=== PATIENT | female | born 1950 | race Hispanic/Latino ===

== ENCOUNTER 2021-02-17 00:52 | Observation (INO) | payer MEDICARE, OTHER ==
[2021-02-17] VITALS (10 sets, daily range): BP systolic 119–199; BP diastolic 63–83
[~2021-02-17] VITALS: Ht 149.9 cm; Wt 74.6 kg
[~2021-02-17 00:52] MED LIST: ERGO500014 PO; GLIM2TAB30 PO; LISI1TAB51 PO; PRED2.5T PO
[2021-02-17] MEDS ORDERED: LACTATED RINGERS 1000ML 1,000 ML IV ONE (02:30)
[2021-02-17 02:40] LABS: BASOPHILS % (AUTO) 0.8 % (0.0-5.0); EOSINOPHILS % (AUTO) 3.3 % (0.0-8.0); HEMATOCRIT 32.6 % (36-48); LYMPHOCYTES % (AUTO) 34.7 % (21.0-51.0); MEAN CORPUSCULAR HGB CONC 33.4 g/dL (32.0-36.0); MEAN CORPUSCULAR VOLUME 80.7 fL (79-99); MONOCYTES % (AUTO) 6.2 % (3.0-13.0); NEUTROPHILS % (AUTO) 54.8 % (40.0-77.0); PLATELET COUNT (AUTO) 351 K/uL (130-400); RED BLOOD CELL COUNT(AUTO) 4.04 MIL/uL (4.00-5.50); RED CELL DISTRIBUTION WIDTH 14.2 % (11.0-15.5); WHITE BLOOD COUNT (AUTO) 4.9 K/uL (4.8-10.8)
[2021-02-17 02:46] LABS: CARBON DIOXIDE 28 mmol/L (21-32); CHLORIDE 105 mmol/L (101-111); CREATININE 0.8 mg/dL (0.5-1.5); GLOMERULAR FILTR. RATE CALC 76 mL/min (>60); GLUCOSE,RANDOM 127 mg/dL (70-105); POTASSIUM 3.6 mmol/L (3.5-5.1); SODIUM SERUM 141 mmol/L (136-145); UREA NITROGEN, BLOOD 17 mg/dL (7-18)
[2021-02-17 03:00] LABS: ALBUMIN 2.6 g/dL (3.5-5.0); BILIRUBIN,TOTAL 0.3 mg/dL (0.2-1.0); CREATINE KINASE, TOTAL 92 U/L (21-232); LDL DIRECT 146 mg/dL (0-99); MYOGLOBIN 44 ng/mL (10-92); PROTHROMBIN TIME 10.9 SEC (9.6-11.6); TOTAL PROTEIN, SERUM 7.6 g/dL (6.0-8.3); TROPONIN I < 0.04 ng/mL (0.00-0.06)
[2021-02-17 03:08] LABS: ASPARTATE AMINOTRANSFERASE 32 U/L (10-37)
[2021-02-17 03:30] LABS: ALANINE AMINOTRANSFERASE 19 U/L (12-78)
[2021-02-17 04:37] LABS: APPEARANCE,URINE Clear (CLEAR); BILIRUBIN,URINE Negative (NEGATIVE); COLOR,URINE Yellow (YELLOW); GLUCOSE, URINE (UA) TRACE mg/dL (NEGATIVE); KETONES,URINE Negative (NEGATIVE); LEUKOCYTE ESTERASE ,URINE Negative (NEGATIVE); NITRATE,URINE Negative (NEGATIVE); OCCULT BLOOD,URINE Small (NEGATIVE); PROTEIN,URINE >=1000 mg/dL (NEGATIVE); UROBILINOGEN,URINE 0.2 mg/dL (0.2-1.0)
[2021-02-17 05:14] LABS: BACTERIA,URINE Rare /HPF (None Seen); SQUAMOUS EPITHELIAL CELL,UR 0-2 /HPF (0-2)
[2021-02-17] MEDS ORDERED: ATOR20TA65 PO (05:47)
[2021-02-17] MEDS ORDERED: FERS325 PO (05:49)
[2021-02-17] MEDS ORDERED: LEVO-170 PO (05:56)
[2021-02-17] MEDS ORDERED: CHOL2400 MC (05:56)
[2021-02-17] MEDS ORDERED: AMLO-258 PO (05:56)
[2021-02-17] MEDS ORDERED: HYDR-4153 PO (05:56)
[2021-02-17 07:25] LABS: HEMATOCRIT 31.6 % (36-48); MEAN CORPUSCULAR VOLUME 81.4 fL (79-99); PLATELET COUNT (AUTO) 282 K/uL (130-400); RED BLOOD CELL COUNT(AUTO) 3.88 MIL/uL (4.00-5.50); RED CELL DISTRIBUTION WIDTH 14.1 % (11.0-15.5); WHITE BLOOD COUNT (AUTO) 5.2 K/uL (4.8-10.8)
[2021-02-17 07:37] LABS: CREATININE 0.7 mg/dL (0.5-1.5); POTASSIUM 3.6 mmol/L (3.5-5.1)
[2021-02-17 07:42] LABS: MAGNESIUM 1.5 mg/dL (1.80-2.40)
[2021-02-17 07:43] LABS: BASOPHILS % (MANUAL) 1 % (0-2); EOSINOPHILS % (MANUAL) 2 % (1-6); LYMPHOCYTES % (MANUAL) 16 % (22-44); MAN.DIFF COMMENT-IMPRESSION MANUAL DIFFERENTIAL; MONOCYTES % (MANUAL) 6 % (2-9); PLATELET MORPHOLOGY COMMENT ADEQUATE; SEGMENTED NEUTROPHILS % 75 % (40-70)
[2021-02-17 07:47] LABS: HEMOGLOBIN A1C 7.4 % (4.0-6.0)
[2021-02-17] MEDS ORDERED: ATORVASTATIN 40 MG TABLET PO SCH (08:00)
[2021-02-17] MEDS: ASPIRIN 81MG CHEW TAB PO SCH ×2 (09:00→09:33)
[2021-02-17] MEDS ORDERED: DEXTROSE 50%-WATER 50 ML DISP.SYRIN IV PRN (09:00)
[2021-02-17] MEDS: ENOXAPARIN SODIUM 30 MG/0.3 ML SQ SCH ×2 (09:00→09:34)
[2021-02-17] MEDS ORDERED: GLUCAGON 1MG KIT 1 MG ML IM PRN (09:00)
[2021-02-17] MEDS ORDERED: GADOTERATE MEGLUMINE 10 MMOL/20 ML VIAL IV ONE (10:22)
[2021-02-17] MEDS ORDERED: INSULIN HUMULIN R 100 UNIT/ML 3ML ONE (12:23)
[2021-02-17] MEDS: HYDRALAZINE 25MG TABLET PO SCH ×2 (14:00→20:28)
[2021-02-17] MEDS: INSULIN HUMULIN R 100 UNIT/ML 3ML SQ SCH ×2 (16:30→21:00)
[2021-02-17] MEDS: ACETAMINOPHEN 325 MG TAB PO PRN (21:01)
[2021-02-17] MEDS ORDERED: TOFA11TA PO (22:01)
[2021-02-17] MEDS ORDERED: METF-445 PO (22:03)
[2021-02-17] MEDS ORDERED: ONDANSETRON 4MG INJ IVP PRN (22:15)
[2021-02-18 03:43] VITALS: BP 189/62
[2021-02-18 05:47] LABS: HEMATOCRIT 31.4 % (36-48); MEAN CORPUSCULAR HEMOGLOBIN 26.2 pg (27.0-33.0); MEAN CORPUSCULAR HGB CONC 32.2 g/dL (32.0-36.0); MEAN CORPUSCULAR VOLUME 81.3 fL (79-99); RED BLOOD CELL COUNT(AUTO) 3.86 MIL/uL (4.00-5.50); RED CELL DISTRIBUTION WIDTH 14.1 % (11.0-15.5); WHITE BLOOD COUNT (AUTO) 4.6 K/uL (4.8-10.8)
[2021-02-18 05:54] LABS: HEMOGLOBIN A1C 7.1 % (4.0-6.0)
[2021-02-18 06:03] LABS: CREATININE 0.7 mg/dL (0.5-1.5); MAGNESIUM 1.7 mg/dL (1.80-2.40); POTASSIUM 3.7 mmol/L (3.5-5.1)
[2021-02-18] MEDS: INSULIN HUMULIN R 100 UNIT/ML 3ML SQ SCH ×4 (06:10→20:38)
[2021-02-18] MEDS: HYDRALAZINE 25MG TABLET PO SCH ×3 (08:30→20:25)
[2021-02-18] MEDS: ASPIRIN 325 MG TABLET PO SCH (08:30)
[2021-02-18] MEDS: ENOXAPARIN SODIUM 30 MG/0.3 ML SQ SCH (08:32)
[2021-02-18 09:56] VITALS: BP 173/78
[2021-02-18 12:33] VITALS: BP 174/75
[2021-02-18] MEDS ORDERED: IOHEXOL-350 50ML VIAL IV ONE (12:59)
[2021-02-18] MEDS: METFORMIN HCL 850 MG TABLET PO SCH (16:30)
[2021-02-18 16:33] VITALS: BP 173/83
[2021-02-18] MEDS: ACETAMINOPHEN 325 MG TAB PO PRN (17:01)
[2021-02-18 19:35] VITALS: BP 169/74
[2021-02-18] MEDS: FERROUS SULFATE 325 MG TABLET.DR PO SCH (20:25)
[2021-02-18] MEDS ORDERED: ATORVASTATIN 20 MG TABLET PO SCH (21:00)
[2021-02-18] MEDS ORDERED: ATORVASTATIN 40 MG TABLET PO SCH (21:00)
[2021-02-19 00:02] VITALS: BP 175/69
[2021-02-19] MEDS ORDERED: CLONIDINE HCL 0.1 MG TABLET PO ONE (00:15)
[2021-02-19 03:50] VITALS: BP 156/62
[2021-02-19] MEDS: METFORMIN HCL 850 MG TABLET PO SCH ×2 (05:44→16:55)
[2021-02-19] MEDS: INSULIN HUMULIN R 100 UNIT/ML 3ML SQ SCH ×3 (06:25→16:30)
[2021-02-19] MEDS ORDERED: LEVOTHYROXINE 50 MCG TABLET PO SCH (07:30)
[2021-02-19] MEDS: ASPIRIN 325 MG TABLET PO SCH (08:26)
[2021-02-19 08:27] VITALS: BP 163/69
[2021-02-19] MEDS: FERROUS SULFATE 325 MG TABLET.DR PO SCH (08:27)
[2021-02-19] MEDS: ENOXAPARIN SODIUM 30 MG/0.3 ML SQ SCH (08:31)
[2021-02-19] MEDS: HYDRALAZINE 25MG TABLET PO SCH ×2 (08:31→13:14)
[2021-02-19] MEDS ORDERED: AMLODIPINE 5 MG TAB PO SCH (09:00)
[2021-02-19] MEDS ORDERED: CHOLECALCIFEROL 5000 UNIT PO SCH (09:00)
[2021-02-19] MEDS ORDERED: PREDNISONE 5 MG TABLET PO SCH (09:00)
[2021-02-19] MEDS ORDERED: TOFACITINIB CITRATE 11 MG PO SCH (09:00)
[2021-02-19 14:00] VITALS: BP 165/77
[2021-02-19 17:05] VITALS: BP 138/72
[2021-02-20] MEDS ORDERED: LEVOTHYROXINE 50 MCG TABLET PO SCH (06:30)
== END 2021-02-19 18:45 | disposition home health service (06) ==
LOC: EDH 00:52 → EDHIP 04:57 → INTOOBSV 04:57 → 3CH 21:12
PROVIDERS: ADMIT Internal Medicine Infectious Disease; ATTEND Internal Medicine Infectious Disease
DX: G45.9 Transient cerebral ischemic attack, unspecified (principal); I69.354 Hemiplegia and hemiparesis following cerebral infarction affecting left non-dominant side; I16.1 Hypertensive emergency; E11.9 Type 2 diabetes mellitus without complications; E78.5 Hyperlipidemia, unspecified; M06.9 Rheumatoid arthritis, unspecified; D84.9 Immunodeficiency, unspecified; E03.9 Hypothyroidism, unspecified; I10 Essential (primary) hypertension; Z79.899 Other long term (current) drug therapy; Z88.5 Allergy status to narcotic agent; Z88.8 Allergy status to other drugs, medicaments and biological substances
CPT/HCPCS: 36415 ×2; 70450; 70460; 70553; 71045; 80053; 80061 ×2; 81001; 82550; 82948 ×12; 83036 ×2; 83721; 83735 ×3; 83874; 84443; 84484; 85025 ×2; 85027; 85610; 92522; 92610; 93005 ×3; 93880; 96360; 96361; 96372 ×3; 97039; 97116; 97161; 99285; A9575; G0378 ×60; G8978; G8979; G8980; G8981; G8982; G8983; J1650 ×3; J1815 ×5; J7120; J7512; Q9967; 80048

== ENCOUNTER 2021-05-18 08:53 | Inpatient (IN) | payer MEDICARE ==
[~2021-05-18] VITALS: Ht 149.9 cm; Wt 55.7 kg
[~2021-05-18 08:53] MED LIST changes: +AMLO-258 PO; +ATOR20TA65 PO; +CHOL2400 MC; -ERGO500014 PO; +FERS325 PO; -GLIM2TAB30 PO; +HYDR-4153 PO; +LEVO-170 PO; -LISI1TAB51 PO; +METF-445 PO; +TOFA11TA PO
[2021-05-18 08:57] VITALS: BP 231/62
[2021-05-18] MEDS ORDERED: AEC81 PO (09:32)
[2021-05-18] MEDS ORDERED: ENAL20TA18 PO (09:45)
[2021-05-18] MEDS ORDERED: CYAN10007 IJ (09:45)
[2021-05-18] MEDS ORDERED: ONDANSETRON 4MG INJ ONE (09:54)
[2021-05-18] MEDS ORDERED: MORPHINE 4 MG SYG ONE (09:55)
[2021-05-18] MEDS ORDERED: MORPHINE 4 MG SYG IV ONE (10:00)
[2021-05-18] MEDS: MORPHINE 2 MG SYG IVP SCH (10:00)
[2021-05-18] MEDS ORDERED: ONDANSETRON 4MG INJ IVP ONE (10:00)
[2021-05-18 10:50] LABS: BASOPHILS % (AUTO) 0.2 % (0.0-5.0); EOSINOPHILS % (AUTO) 1.1 % (0.0-8.0); HEMATOCRIT 31.2 % (36-48); LYMPHOCYTES % (AUTO) 8.6 % (21.0-51.0); MEAN CORPUSCULAR HEMOGLOBIN 27.2 pg (27.0-33.0); MEAN CORPUSCULAR HGB CONC 32.7 g/dL (32.0-36.0); MEAN CORPUSCULAR VOLUME 83.2 fL (79-99); NEUTROPHILS % (AUTO) 85.5 % (40.0-77.0); PLATELET COUNT (AUTO) 296 K/uL (130-400); RED BLOOD CELL COUNT(AUTO) 3.75 MIL/uL (4.00-5.50); RED CELL DISTRIBUTION WIDTH 14.4 % (11.0-15.5); WHITE BLOOD COUNT (AUTO) 8.8 K/uL (4.8-10.8)
[2021-05-18 10:58] LABS: CREATININE 0.8 mg/dL (0.5-1.5); POTASSIUM 3.7 mmol/L (3.5-5.1)
[2021-05-18 11:02] LABS: ALBUMIN 3.1 g/dL (3.5-5.0); BILIRUBIN,TOTAL 0.2 mg/dL (0.2-1.0); TOTAL PROTEIN, SERUM 7.5 g/dL (6.0-8.3)
[2021-05-18 11:04] LABS: INR 0.99 (0.85-1.15); PROTHROMBIN TIME 10.8 SEC (9.6-11.6)
[2021-05-18 11:05] LABS: PARTIAL THROMBOPLASTIN TIME 23.1 SEC (26.3-35.5)
[2021-05-18] MEDS: 0.9%NACL 1000ML 1,000 ML IV SCH (12:30)
[2021-05-18] MEDS ORDERED: DEXTROSE 50%-WATER 50 ML DISP.SYRIN IV PRN (12:30)
[2021-05-18] MEDS ORDERED: GLUCAGON 1MG KIT 1 MG ML IM PRN (12:30)
[2021-05-18] MEDS ORDERED: HYDRALAZINE 20MG/ML VIAL IV PRN ×2 (13:00→22:00)
[2021-05-18] MEDS: MORPHINE 2 MG SYG IVP PRN ×2 (14:39→23:19)
[2021-05-18] MEDS: INSULIN HUMULIN R 100 UNIT/ML 3ML SQ SCH ×2 (16:30→21:00)
[2021-05-18 17:16] VITALS: BP 189/70
[2021-05-18] MEDS ORDERED: INSULIN HUMULIN R 100 UNIT/ML 3ML SQ SCH (18:00)
[2021-05-18] MEDS ORDERED: FAMOTIDINE 20MG VIAL IV SCH (21:00)
[2021-05-18] MEDS: HYDRALAZINE 25MG TABLET PO SCH (21:12)
[2021-05-18] MEDS: ATORVASTATIN 20 MG TABLET PO SCH (21:12)
[2021-05-18] MEDS: FERROUS SULFATE 325 MG TABLET.DR PO SCH (21:12)
[2021-05-18 21:38] VITALS: BP 172/61
[2021-05-18] MEDS ORDERED: KETOROLAC 30MG VIAL (30MG/ML) IM ONE (22:00)
[2021-05-18] MEDS ORDERED: LORAZEPAM 2 MG/ML 1 ML VIAL IVP PRN (22:00)
[2021-05-18 22:25] VITALS: BP 167/65
[2021-05-18 22:50] VITALS: BP 182/92
[2021-05-19] VITALS (28 sets, daily range): BP systolic 126–187; BP diastolic 44–74
[2021-05-19] MEDS: 0.9%NACL 1000ML 1,000 ML IV SCH ×3 (01:50→15:10)
[2021-05-19 06:00] LABS: HEMATOCRIT 30.1 % (36-48); MEAN CORPUSCULAR HEMOGLOBIN 27.8 pg (27.0-33.0); MEAN CORPUSCULAR HGB CONC 32.6 g/dL (32.0-36.0); MEAN CORPUSCULAR VOLUME 85.5 fL (79-99); RED BLOOD CELL COUNT(AUTO) 3.52 MIL/uL (4.00-5.50); RED CELL DISTRIBUTION WIDTH 14.5 % (11.0-15.5); WHITE BLOOD COUNT (AUTO) 6.3 K/uL (4.8-10.8)
[2021-05-19 06:18] LABS: HEMOGLOBIN A1C 6.6 % (4.0-6.0)
[2021-05-19 06:29] LABS: CREATININE 0.8 mg/dL (0.5-1.5); POTASSIUM 3.5 mmol/L (3.5-5.1); THYROID STIMULATING HORMONE 1.31 uIU/mL (0.36-3.74)
[2021-05-19] MEDS: LEVOTHYROXINE 50 MCG TABLET PO SCH (06:36)
[2021-05-19] MEDS: INSULIN HUMULIN R 100 UNIT/ML 3ML SQ SCH ×4 (06:38→21:00)
[2021-05-19] MEDS: MORPHINE 2 MG SYG IVP SCH (09:00)
[2021-05-19] MEDS: **HM** VIT D3 5000 UNITS PO SCH (09:00)
[2021-05-19] MEDS: **HM** XELJANZ XR 11MG PO SCH (09:00)
[2021-05-19] MEDS: FERROUS SULFATE 325 MG TABLET.DR PO SCH ×3 (09:00→21:24)
[2021-05-19] MEDS: ENOXAPARIN SODIUM 40 MG/0.4 ML SYRINGE SQ SCH (09:00)
[2021-05-19] MEDS: HYDRALAZINE 25MG TABLET PO SCH ×3 (09:02→21:25)
[2021-05-19] MEDS: FAMOTIDINE 20MG VIAL IV SCH (09:02)
[2021-05-19] MEDS: AMLODIPINE 5 MG TAB PO SCH (09:02)
[2021-05-19] MEDS: THIAMINE HCL 100 MG/ML 2ML VIAL IVP SCH (09:04)
[2021-05-19] MEDS: M.V.I. IV [ADULT] 10 ML, FOLIC ACID 1 MG, THIAMINE HCL 300 MG in 0.9%NACL 1000ML 1,000 ML IV SCH (09:04)
[2021-05-19] MEDS: ENALAPRIL MALEATE 10 MG TABLET PO SCH (09:07)
[2021-05-19] MEDS ORDERED: LIDOCAINE PF 100MG/5ML (2%) SYRINGE 5ML ONE ×2 (10:37→10:41)
[2021-05-19] MEDS ORDERED: PROPOFOL 10 MG/ML 20ML VIAL IV ONE (10:37)
[2021-05-19] MEDS ORDERED: CEFAZOLIN SODIUM 1 GM VIAL ONE (10:43)
[2021-05-19] MEDS ORDERED: ROCURONIUM 10MG/1ML SYR 10 MG/ML ML ONE (11:00)
[2021-05-19] MEDS: CEFAZOLIN SODIUM 1 GM VIAL IVP SCH ×3 (11:05→13:57)
[2021-05-19] MEDS ORDERED: PHENYLEPHRINE HCL 10 MG/ML 1ML VIAL IV ONE (11:07)
[2021-05-19] MEDS ORDERED: ONDANSETRON 4MG INJ ONE (11:47)
[2021-05-19] MEDS ORDERED: GLYCOPYRROLATE 1 MG/5 ML SYRINGE ONE (11:47)
[2021-05-19] MEDS ORDERED: NEOSTIGMINE 5MG/5ML SYR IV ONE (11:47)
[2021-05-19] MEDS ORDERED: FENTANYL CITRATE PF 50 MCG/1 ML 2ML VIAL ONE (12:10)
[2021-05-19] MEDS ORDERED: MEPERIDINE-PF 25 MG/ML SYG ONE (12:43)
[2021-05-19] MEDS: MORPHINE 4 MG SYG IV PRN ×2 (19:49→21:21)
[2021-05-19] MEDS: ATORVASTATIN 20 MG TABLET PO SCH (19:50)
[2021-05-19] MEDS ORDERED: ASPIRIN 81 MG EC TAB PO PRN (20:00)
[2021-05-20 03:43] VITALS: BP 147/60
[2021-05-20 04:01] LABS: APPEARANCE,URINE Clear (CLEAR); BILIRUBIN,URINE Negative (NEGATIVE); COLOR,URINE Yellow (YELLOW); GLUCOSE, URINE (UA) TRACE mg/dL (NEGATIVE); KETONES,URINE Trace mg/dL (NEGATIVE); LEUKOCYTE ESTERASE ,URINE Trace (NEGATIVE); NITRATE,URINE Negative (NEGATIVE); OCCULT BLOOD,URINE Negative (NEGATIVE); PH,URINE 5.5 (5.0-8.0); PROTEIN,URINE >=1000 mg/dL (NEGATIVE)
[2021-05-20 04:17] LABS: BACTERIA,URINE Moderate /HPF (None Seen); RBC,URINE None Seen /HPF (0-1); SQUAMOUS EPITHELIAL CELL,UR 0-2 /HPF (0-2)
[2021-05-20] MEDS: 0.9%NACL 1000ML 1,000 ML IV SCH ×2 (04:30→16:50)
[2021-05-20 05:33] LABS: BASOPHILS % (AUTO) 0.3 % (0.0-5.0); EOSINOPHILS % (AUTO) 0.5 % (0.0-8.0); HEMATOCRIT 23.3 % (36-48); LYMPHOCYTES % (AUTO) 7.4 % (21.0-51.0); MEAN CORPUSCULAR HEMOGLOBIN 27.9 pg (27.0-33.0); MEAN CORPUSCULAR HGB CONC 32.6 g/dL (32.0-36.0); MEAN CORPUSCULAR VOLUME 85.7 fL (79-99); MONOCYTES % (AUTO) 8.8 % (3.0-13.0); NEUTROPHILS % (AUTO) 82.7 % (40.0-77.0); PLATELET COUNT (AUTO) 189 K/uL (130-400); RED BLOOD CELL COUNT(AUTO) 2.72 MIL/uL (4.00-5.50); RED CELL DISTRIBUTION WIDTH 14.6 % (11.0-15.5); WHITE BLOOD COUNT (AUTO) 6.5 K/uL (4.8-10.8)
[2021-05-20 06:08] LABS: CREATININE 0.8 mg/dL (0.5-1.5); POTASSIUM 3.5 mmol/L (3.5-5.1)
[2021-05-20] MEDS: INSULIN HUMULIN R 100 UNIT/ML 3ML SQ SCH ×4 (06:12→20:57)
[2021-05-20] MEDS: LEVOTHYROXINE 50 MCG TABLET PO SCH (07:33)
[2021-05-20] MEDS: **HM** XELJANZ XR 11MG PO SCH (07:42)
[2021-05-20] MEDS: **HM** VIT D3 5000 UNITS PO SCH (07:42)
[2021-05-20] MEDS: MORPHINE 2 MG SYG IVP SCH (07:43)
[2021-05-20 08:00] VITALS: BP 174/64
[2021-05-20] MEDS: ENALAPRIL MALEATE 10 MG TABLET PO SCH (08:42)
[2021-05-20] MEDS: FERROUS SULFATE 325 MG TABLET.DR PO SCH ×2 (08:43→20:55)
[2021-05-20] MEDS: HYDRALAZINE 25MG TABLET PO SCH ×2 (08:43→20:54)
[2021-05-20] MEDS: AMLODIPINE 5 MG TAB PO SCH (08:43)
[2021-05-20] MEDS: FAMOTIDINE 20MG VIAL IV SCH (08:44)
[2021-05-20] MEDS: THIAMINE HCL 100 MG/ML 2ML VIAL IVP SCH (08:44)
[2021-05-20] MEDS: ENOXAPARIN SODIUM 40 MG/0.4 ML SYRINGE SQ SCH (08:45)
[2021-05-20] MEDS: METFORMIN HCL 850 MG TABLET PO SCH ×2 (09:00→17:21)
[2021-05-20] MEDS: M.V.I. IV [ADULT] 10 ML, FOLIC ACID 1 MG, THIAMINE HCL 300 MG in 0.9%NACL 1000ML 1,000 ML IV SCH (09:00)
[2021-05-20] MEDS: MORPHINE 4 MG SYG IV PRN ×3 (09:01→23:54)
[2021-05-20] MEDS: ONDANSETRON 4MG INJ IVP PRN ×2 (10:18→17:21)
[2021-05-20] MEDS ORDERED: GLIP5TAB11 PO (11:55)
[2021-05-20 12:00] VITALS: BP 167/49
[2021-05-20 16:00] VITALS: BP 165/52
[2021-05-20 19:40] VITALS: BP 152/53
[2021-05-20] MEDS: ATORVASTATIN 20 MG TABLET PO SCH (20:55)
[2021-05-20] MEDS: METOCLOPRAMIDE 10 MG/2 ML VIAL IVP SCH (20:56)
[2021-05-20 23:35] VITALS: BP 152/54
[2021-05-21 04:17] VITALS: BP 147/51
[2021-05-21 04:54] LABS: HEMATOCRIT 22.6 % (36-48); MEAN CORPUSCULAR HEMOGLOBIN 27.5 pg (27.0-33.0); MEAN CORPUSCULAR HGB CONC 31.4 g/dL (32.0-36.0); MEAN CORPUSCULAR VOLUME 87.6 fL (79-99); RED BLOOD CELL COUNT(AUTO) 2.58 MIL/uL (4.00-5.50); RED CELL DISTRIBUTION WIDTH 14.4 % (11.0-15.5); WHITE BLOOD COUNT (AUTO) 6.5 K/uL (4.8-10.8)
[2021-05-21 06:00] LABS: POTASSIUM 3.8 mmol/L (3.5-5.1)
[2021-05-21] MEDS: 0.9%NACL 1000ML 1,000 ML IV SCH (07:10)
[2021-05-21] MEDS: LEVOTHYROXINE 50 MCG TABLET PO SCH (07:15)
[2021-05-21] MEDS: METOCLOPRAMIDE 10 MG/2 ML VIAL IVP SCH ×4 (07:15→20:30)
[2021-05-21 07:17] LABS: % IRON SATURATION 10.4 % (22-44)
[2021-05-21] MEDS: INSULIN HUMULIN R 100 UNIT/ML 3ML SQ SCH ×4 (07:30→20:29)
[2021-05-21 08:00] VITALS: BP 143/48
[2021-05-21] MEDS: **HM** VIT D3 5000 UNITS PO SCH (09:00)
[2021-05-21] MEDS: **HM** XELJANZ XR 11MG PO SCH (09:00)
[2021-05-21] MEDS: M.V.I. IV [ADULT] 10 ML, FOLIC ACID 1 MG, THIAMINE HCL 300 MG in 0.9%NACL 1000ML 1,000 ML IV SCH (09:00)
[2021-05-21] MEDS: MORPHINE 2 MG SYG IVP SCH ×2 (09:56→20:31)
[2021-05-21] MEDS: HYDRALAZINE 25MG TABLET PO SCH ×2 (10:03→20:30)
[2021-05-21] MEDS: METFORMIN HCL 850 MG TABLET PO SCH ×2 (10:03→16:49)
[2021-05-21] MEDS: FAMOTIDINE 20MG VIAL IV SCH (10:04)
[2021-05-21] MEDS: FERROUS SULFATE 325 MG TABLET.DR PO SCH ×2 (10:04→20:30)
[2021-05-21] MEDS: THIAMINE HCL 100 MG/ML 2ML VIAL IVP SCH (10:04)
[2021-05-21] MEDS: AMLODIPINE 5 MG TAB PO SCH (10:04)
[2021-05-21] MEDS: ENALAPRIL MALEATE 10 MG TABLET PO SCH (10:19)
[2021-05-21 11:00] VITALS: BP 171/60
[2021-05-21 12:17] LABS: RETICULOCYTE % (AUTO) 1.68 % (0.42-2.23)
[2021-05-21 16:00] VITALS: BP 152/41
[2021-05-21 19:45] VITALS: BP 153/61
[2021-05-21] MEDS: ATORVASTATIN 20 MG TABLET PO SCH (20:29)
[2021-05-26] MEDS ORDERED: CYANOCOBALAMIN (VITAMIN B-12) 1000 MCG/ML 1ML VIAL IM SCH (09:00)
== END 2021-05-21 20:40 | DRG 481 ==
LOC: EDH 08:53 → EDHIP 12:16 → 3BH 21:46
PROVIDERS: ADMIT Internal Medicine Pulmonary Disease; ATTEND Internal Medicine Pulmonary Disease
PROC: 0QS606Z Reposition Right Upper Femur with Intramedullary Internal Fixation Device, Open Approach (ICD-10-PCS; principal; 2021-05-19 11:26)
PROC: 30233N1 Transfusion of Nonautologous Red Blood Cells into Peripheral Vein, Percutaneous Approach (ICD-10-PCS; 2021-05-21)
DX: S72.141A Displaced intertrochanteric fracture of right femur, initial encounter for closed fracture (principal); D84.9 Immunodeficiency, unspecified; E03.9 Hypothyroidism, unspecified; E11.9 Type 2 diabetes mellitus without complications; I10 Essential (primary) hypertension; Z20.822 Contact with and (suspected) exposure to COVID-19; M06.9 Rheumatoid arthritis, unspecified; D64.9 Anemia, unspecified; E78.00 Pure hypercholesterolemia, unspecified; W01.0XXA Fall on same level from slipping, tripping and stumbling without subsequent striking against object, initial encounter; Y93.89 Activity, other specified; Y92.098 Other place in other non-institutional residence as the place of occurrence of the external cause; Y99.8 Other external cause status; Z72.89 Other problems related to lifestyle; Z79.82 Long term (current) use of aspirin; Z79.84 Long term (current) use of oral hypoglycemic drugs; Z79.899 Other long term (current) drug therapy; Z88.5 Allergy status to narcotic agent; Z88.8 Allergy status to other drugs, medicaments and biological substances; Z90.49 Acquired absence of other specified parts of digestive tract; Z82.3 Family history of stroke; Z83.3 Family history of diabetes mellitus; Z82.49 Family history of ischemic heart disease and other diseases of the circulatory system
CPT/HCPCS: 36415; 36430; 70450; 71045; 73502; 73503; 80048; 80053; 81001; 82306; 82607; 82728; 82948; 83036; 84443; 85025; 85027; 85610; 85730; 86850; 86900; 86901; 86923; 87040; 87088; 87635; 93005; 97039; C9803; G0378; J0360; J0690; J1650; J1885; J2001; J2060; J2175; J2270; J2370; J2405; J2704; J2710; J2765; J3010; J3411; J3490; J7030; P9016

== ENCOUNTER 2021-12-28 17:13 | Emergency (ER) | payer MEDICARE ==
[~2021-12-28] VITALS: Ht 149.9 cm; Wt 54.4 kg
[~2021-12-28 17:13] MED LIST changes: +AEC81 PO; +CYAN10007 IJ; +ENAL20TA18 PO; +GLIP5TAB11 PO
[2021-12-28 18:08] LABS: BASOPHILS % (AUTO) 0.6 % (0.0-5.0); EOSINOPHILS % (AUTO) 2.2 % (0.0-8.0); HEMATOCRIT 29.8 % (36-48); LYMPHOCYTES % (AUTO) 15.9 % (21.0-51.0); MEAN CORPUSCULAR HEMOGLOBIN 28.4 pg (27.0-33.0); MEAN CORPUSCULAR HGB CONC 33.9 g/dL (32.0-36.0); MEAN CORPUSCULAR VOLUME 83.7 fL (79-99); MONOCYTES % (AUTO) 7.1 % (3.0-13.0); NEUTROPHILS % (AUTO) 73.8 % (40.0-77.0); PLATELET COUNT (AUTO) 196 K/uL (130-400); RED BLOOD CELL COUNT(AUTO) 3.56 MIL/uL (4.00-5.50); RED CELL DISTRIBUTION WIDTH 13.3 % (11.0-15.5); WHITE BLOOD COUNT (AUTO) 5.1 K/uL (4.8-10.8)
[2021-12-28 18:11] LABS: APPEARANCE,URINE Clear (CLEAR); BILIRUBIN,URINE Negative (NEGATIVE); COLOR,URINE Yellow (YELLOW); GLUCOSE, URINE (UA) TRACE mg/dL (NEGATIVE); KETONES,URINE Trace mg/dL (NEGATIVE); LEUKOCYTE ESTERASE ,URINE Trace (NEGATIVE); NITRATE,URINE Negative (NEGATIVE); OCCULT BLOOD,URINE Moderate (NEGATIVE); PH,URINE 5.5 (5.0-8.0); PROTEIN,URINE >=1000 mg/dL (NEGATIVE); UROBILINOGEN,URINE 0.2 mg/dL (0.2-1.0)
[2021-12-28 18:23] LABS: CARBON DIOXIDE 20 mmol/L (21-32); CHLORIDE 106 mmol/L (101-111); GLOMERULAR FILTR. RATE CALC 58 mL/min (>60); GLUCOSE,RANDOM 114 mg/dL (70-105); POTASSIUM 3.9 mmol/L (3.5-5.1); SODIUM SERUM 136 mmol/L (136-145); UREA NITROGEN, BLOOD 14 mg/dL (7-18)
[2021-12-28 18:27] LABS: ALANINE AMINOTRANSFERASE 12 U/L (12-78); ALBUMIN 2.9 g/dL (3.5-5.0); ASPARTATE AMINOTRANSFERASE 22 U/L (10-37); BILIRUBIN,TOTAL 0.2 mg/dL (0.2-1.0); TOTAL PROTEIN, SERUM 7.5 g/dL (6.0-8.3)
[2021-12-28 18:28] LABS: BACTERIA,URINE Few /HPF (None Seen); LIPASE < 50 U/L (114-286); SQUAMOUS EPITHELIAL CELL,UR Few /HPF (0-2)
[2021-12-28] MEDS ORDERED: 0.9%NACL 1000ML 1,000 ML IV ONE ×2 (19:30→20:37)
[2021-12-28] MEDS ORDERED: ONDANSETRON 4MG INJ IVP ONE (19:30)
[2021-12-28] MEDS ORDERED: CEFTRIAXONE 1G VIAL IVP SCH (20:30)
[2021-12-28] MEDS ORDERED: ONDANSETRON 4MG INJ ONE (20:37)
[2021-12-28 20:46] VITALS: BP 199/56
[2021-12-28] MEDS ORDERED: MACR100 PO (20:54)
== END 2021-12-28 22:05 | disposition home or self-care (01) ==
LOC: EDH 17:13
DX: N39.0 Urinary tract infection, site not specified (principal); R11.10 Vomiting, unspecified; R19.7 Diarrhea, unspecified; E03.9 Hypothyroidism, unspecified; E11.9 Type 2 diabetes mellitus without complications; I10 Essential (primary) hypertension; Z79.52 Long term (current) use of systemic steroids; Z79.82 Long term (current) use of aspirin; Z79.84 Long term (current) use of oral hypoglycemic drugs; Z79.899 Other long term (current) drug therapy; Z88.5 Allergy status to narcotic agent; Z90.49 Acquired absence of other specified parts of digestive tract
CPT/HCPCS: 36415; 80053; 81001; 83690; 85025; 87088; 96361; 96374; 96375; 99284; J0696; J2405; J7030

== ENCOUNTER 2024-03-27 04:43 | Observation (INO) | payer MEDICARE ==
[~2024-03-27] VITALS: Ht 149.9 cm; Wt 49.0 kg
[~2024-03-27 04:43] MED LIST changes: -AMLO-258 PO; +AMLO5TAB4 PO; -ATOR20TA65 PO; +ATOR40TA69 PO; +CILO50TA2 PO; +CLOP-31 PO; +ENAL-91 PO; -ENAL20TA18 PO; -GLIP5TAB11 PO; +GLIP5TAB15 PO; -HYDR-4153 PO; +HYDR25TA67 PO; -LEVO-170 PO; +LEVO75CA5 PO; -METF-445 PO; +SOLI10TA7 PO; -TOFA11TA PO
[2024-03-27] MEDS: LACTATED RINGERS 1000ML 1,000 ML IV ONE (06:08)
[2024-03-27] MEDS: MORPHINE 2 MG SYG IVP ONE (06:17)
[2024-03-27] MEDS: FAMOTIDINE 20MG TAB PO ONE (06:17)
[2024-03-27] MEDS: ONDANSETRON 4MG INJ IVP ONE (06:17)
[2024-03-27] MEDS: LEVOFLOXACIN 500 MG/D5W 100 ML 100 ML IV ONE (07:55)
[2024-03-27 08:30] LABS: BASOPHILS # (AUTO) 0.03 K/uL (0.00-0.20); BASOPHILS % (AUTO) 0.7 % (0.0-5.0); EOSINOPHILS # (AUTO) 0.11 K/uL (0.00-0.70); EOSINOPHILS % (AUTO) 2.7 % (0.0-8.0); HEMATOCRIT 30.7 % (36-48); IMMATURE GRANULOCYTE ABSOLUTE 0.02 K/uL (0-1); LYMPHOCYTES # (AUTO) 0.5 K/uL (1.0-4.8); LYMPHOCYTES % (AUTO) 12.5 % (21.0-51.0); MEAN CORPUSCULAR HEMOGLOBIN 31.3 pg (27.0-33.0); MEAN CORPUSCULAR HGB CONC 35.5 g/dL (32.0-36.0); MEAN CORPUSCULAR VOLUME 88.2 fL (79-99); MONOCYTES # (AUTO) 0.3 K/uL (0.1-1.0); MONOCYTES % (AUTO) 7.9 % (3.0-13.0); NEUTROPHILS # (AUTO) 3.1 K/uL (1.8-7.7); NEUTROPHILS % (AUTO) 75.7 % (40.0-77.0); PLATELET COUNT (AUTO) 192 K/uL (130-400); RED BLOOD CELL COUNT(AUTO) 3.48 MIL/uL (4.00-5.50); RED CELL DISTRIBUTION WIDTH 11.5 % (11.0-15.5); WHITE BLOOD COUNT (AUTO) 4.1 K/uL (4.8-10.8)
[2024-03-27 08:56] LABS: CARBON DIOXIDE 29 mmol/L (21-32); CHLORIDE 100 mmol/L (101-111); CREATININE 3.5 mg/dL (0.5-1.0); GLOMERULAR FILTR. RATE CALC 13 mL/min (>90); GLUCOSE,RANDOM 133 mg/dL (70-105); POTASSIUM 4.3 mmol/L (3.5-5.1); SODIUM SERUM 137 mmol/L (136-145); UREA NITROGEN, BLOOD 25 mg/dL (7-18)
[2024-03-27 09:00] LABS: ALANINE AMINOTRANSFERASE < 6 U/L (12-78); ALBUMIN 3.1 g/dL (3.5-5.0); ASPARTATE AMINOTRANSFERASE 13 U/L (10-37); BILIRUBIN,TOTAL 0.3 mg/dL (0.2-1.0); CREATINE KINASE, TOTAL 21 U/L (21-232)
[2024-03-27 09:21] LABS: APPEARANCE,URINE CLEAR (CLEAR); BILIRUBIN,URINE NEGATIVE (NEGATIVE); COLOR,URINE YELLOW (YELLOW); GLUCOSE, URINE (UA) 50 mg/dL (NEGATIVE); KETONES,URINE NEGATIVE (NEGATIVE); LEUKOCYTE ESTERASE ,URINE 25 Leu/uL (NEGATIVE); NITRATE,URINE NEGATIVE (NEGATIVE); OCCULT BLOOD,URINE NEGATIVE (NEGATIVE); PH,URINE 6.5 (5.0-8.0); PROTEIN,URINE 200 mg/dL (NEGATIVE); UROBILINOGEN,URINE 0.2 mg/dL (0.2-1.0)
[2024-03-27 09:30] LABS: ADD UA MICROSCOPIC YES
[2024-03-27 09:32] LABS: RBC,URINE 0-1 /HPF (0-1); SQUAMOUS EPITHELIAL CELL,UR RARE /HPF (0-2)
[2024-03-27] MEDS: METOCLOPRAMIDE 10 MG/2 ML VIAL IVP ONE (09:41)
[2024-03-27] MEDS: METRONIDAZOLE 500MG/100ML BAG IV SCH (10:03)
[2024-03-27] MEDS ORDERED: LOPERAMIDE HCL 2 MG CAP PO PRN (11:30)
[2024-03-27] MEDS ORDERED: ACETAMINOPHEN 325 MG TAB PO PRN ×2 (11:30)
[2024-03-27] MEDS ORDERED: ZOLPIDEM TARTRATE 5 MG TAB PO PRN (11:30)
[2024-03-27] MEDS ORDERED: GUAIFENESIN SUGAR-FREE 100 MG/5 ML UDCUP PO PRN (11:30)
[2024-03-27] MEDS ORDERED: DiphenhydrAMINE HCL 50 MG/ML VIAL IV PRN (11:30)
[2024-03-27] MEDS ORDERED: ARTIFICAL TEARS SOL 15 ML OP PRN (11:30)
[2024-03-27] MEDS ORDERED: LIDOCAINE HCL 2% VISCOUS 30 ML, MAG/ALUM/SIMETH 30ML 30 ML, DICYCLOMINE HCL 20 MG PO PRN (11:30)
[2024-03-27] MEDS ORDERED: POLYETHYLENE GLYCOL 3350 17 GM POWD.PACK PO PRN (11:30)
[2024-03-27] MEDS ORDERED: DOCUSATE SODIUM 100 MG CAP PO PRN (11:30)
[2024-03-27] MEDS ORDERED: LACTULOSE 20 GM/30 ML UDCUP PO PRN (11:30)
[2024-03-27] MEDS ORDERED: NITROGLYCERIN 0.4 MG SL TAB SL PRN (11:30)
[2024-03-27] MEDS ORDERED: ALPRAZOLAM 0.5 MG TABLET PO PRN (11:30)
[2024-03-27] MEDS ORDERED: MAG/ALUM/SIMETH 30 ML UDCUP PO PRN (11:30)
[2024-03-27] MEDS ORDERED: GUAIFENESIN-DM 200/20 MG 10 ML PO PRN (11:30)
[2024-03-27] MEDS ORDERED: DIPHENHYDRAMINE HCL 25 MG CAPSULE PO PRN (11:30)
[2024-03-27] MEDS ORDERED: BENZOCAINE/MENTH/CETYLPYRD CL 1 EACH LOZENGE MM PRN (11:30)
[2024-03-27 13:50] VITALS: BP 160/55; PULSE 60; RESP 20; O2SAT 99
[2024-03-27 16:00] VITALS: BP 157/58; PULSE 57; RESP 18
[2024-03-27] MEDS: INSULIN HUMULIN R 100 UNIT/ML 3ML SQ SCH (16:28)
[2024-03-27] MEDS ORDERED: ASPIRIN 81 MG EC TAB PO PRN (16:30)
[2024-03-27] MEDS ORDERED: FOLI0.8T22 PO (17:28)
[2024-03-27] MEDS ORDERED: CYAN500L PO (17:28)
[2024-03-27 19:33] VITALS: BP 163/58; PULSE 63; RESP 20; O2SAT 99
[2024-03-27] MEDS: HYDRALAZINE 25MG TABLET PO SCH (20:43)
[2024-03-27] MEDS: ENALAPRIL MALEATE 20 MG PO SCH (20:44)
[2024-03-27] MEDS: FAMOTIDINE 20MG TAB PO SCH (20:44)
[2024-03-27] MEDS ORDERED: FAMOTIDINE 20MG VIAL IV PRN (21:00)
[2024-03-27 23:27] VITALS: BP 157/68; PULSE 61; RESP 20
[2024-03-28] VITALS (22 sets, daily range): BP systolic 88–182; BP diastolic 50–75; PULSE 53–66; RESP 14–20; TEMP 97.7–97.9; O2SAT 98–100
[2024-03-28] MEDS: ONDANSETRON 4MG INJ IV PRN (04:14)
[2024-03-28 06:25] LABS: BASOPHILS # (AUTO) 0.03 K/uL (0.00-0.20); BASOPHILS % (AUTO) 0.8 % (0.0-5.0); EOSINOPHILS # (AUTO) 0.11 K/uL (0.00-0.70); EOSINOPHILS % (AUTO) 2.9 % (0.0-8.0); HEMATOCRIT 31.9 % (36-48); IMMATURE GRANULOCYTE ABSOLUTE 0.01 K/uL (0-1); LYMPHOCYTES # (AUTO) 0.4 K/uL (1.0-4.8); LYMPHOCYTES % (AUTO) 9.9 % (21.0-51.0); MEAN CORPUSCULAR HEMOGLOBIN 31.4 pg (27.0-33.0); MEAN CORPUSCULAR HGB CONC 33.9 g/dL (32.0-36.0); MEAN CORPUSCULAR VOLUME 92.7 fL (79-99); MONOCYTES # (AUTO) 0.3 K/uL (0.1-1.0); MONOCYTES % (AUTO) 8.1 % (3.0-13.0); PLATELET COUNT (AUTO) 182 K/uL (130-400); RED BLOOD CELL COUNT(AUTO) 3.44 MIL/uL (4.00-5.50); RED CELL DISTRIBUTION WIDTH 11.3 % (11.0-15.5); WHITE BLOOD COUNT (AUTO) 3.8 K/uL (4.8-10.8)
[2024-03-28] MEDS: LEVOTHYROXINE 75 MCG TABLET PO SCH (06:30)
[2024-03-28 06:40] LABS: CREATININE 4.2 mg/dL (0.5-1.0); POTASSIUM 4.5 mmol/L (3.5-5.1)
[2024-03-28] MEDS: AMLODIPINE 5 MG TAB PO SCH (08:32)
[2024-03-28] MEDS: CYANOCOBALAMIN (VITAMIN B-12) 500 MCG TABLET PO SCH (08:33)
[2024-03-28] MEDS: CHOLECALCIFEROL 5000 UNIT PO SCH (08:34)
[2024-03-28] MEDS: RENA VITE PO SCH (08:37)
[2024-03-28] MEDS: 0.9%NACL 1000ML 1,000 ML IV SCH (17:42)
[2024-03-28] MEDS: LIDOCAINE/PRILOCAINE CREAM 5GM TUBE TP ONE (17:43)
[2024-03-28] MEDS: METRONIDAZOLE 500MG/100ML BAG IV SCH (21:04)
[2024-03-29 04:07] VITALS: BP 155/57; PULSE 57; RESP 20
[2024-03-29] MEDS: ALPRAZOLAM 0.25 MG TABLET ONE (04:58)
[2024-03-29 05:03] LABS: BASOPHILS # (AUTO) 0.03 K/uL (0.00-0.20); BASOPHILS % (AUTO) 0.8 % (0.0-5.0); EOSINOPHILS # (AUTO) 0.15 K/uL (0.00-0.70); EOSINOPHILS % (AUTO) 3.9 % (0.0-8.0); HEMATOCRIT 30.3 % (36-48); IMMATURE GRANULOCYTE ABSOLUTE 0.02 K/uL (0-1); LYMPHOCYTES # (AUTO) 0.5 K/uL (1.0-4.8); LYMPHOCYTES % (AUTO) 12.3 % (21.0-51.0); MEAN CORPUSCULAR HEMOGLOBIN 30.5 pg (27.0-33.0); MEAN CORPUSCULAR HGB CONC 34.3 g/dL (32.0-36.0); MEAN CORPUSCULAR VOLUME 88.9 fL (79-99); MONOCYTES # (AUTO) 0.4 K/uL (0.1-1.0); MONOCYTES % (AUTO) 9.4 % (3.0-13.0); NEUTROPHILS # (AUTO) 2.8 K/uL (1.8-7.7); NEUTROPHILS % (AUTO) 73.1 % (40.0-77.0); PLATELET COUNT (AUTO) 194 K/uL (130-400); RED BLOOD CELL COUNT(AUTO) 3.41 MIL/uL (4.00-5.50); RED CELL DISTRIBUTION WIDTH 11.3 % (11.0-15.5); WHITE BLOOD COUNT (AUTO) 3.8 K/uL (4.8-10.8)
[2024-03-29 05:14] LABS: POTASSIUM 3.6 mmol/L (3.5-5.1)
[2024-03-29 08:00] VITALS: BP_SYST 113; BP_SYST 149; BP_DIAS 70; BP_DIAS 71; PULSE 60; PULSE 81; RESP 18; O2SAT 99
[2024-03-29 11:35] LABS: HEPATITIS B CORE AB TOTAL Non-Reactive (Nonreactive); HEPATITIS B SURFACE ANTIBODY Negative (Reactive); HEPATITIS B SURFACE ANTIGEN Non-Reactive (Nonreactive)
[2024-03-29 12:00] VITALS: BP 149/58; PULSE 60; RESP 18
[2024-03-29] MEDS ORDERED: LEVO250T75 PO (12:55)
[2024-03-29] MEDS ORDERED: LEVOFLOXACIN 250 MG/D5W 50ML 50 ML IVPB SCH (16:00)
== END 2024-03-29 14:10 | disposition home or self-care (01) ==
LOC: EDH 04:43 → EDHIP 11:07 → WSH 13:30
PROVIDERS: ADMIT Internal Medicine Critical Care Medicine; ATTEND Internal Medicine Critical Care Medicine
DX: K52.9 Noninfective gastroenteritis and colitis, unspecified (principal); E86.0 Dehydration; I12.0 Hypertensive chronic kidney disease with stage 5 chronic kidney disease or end stage renal disease; E11.22 Type 2 diabetes mellitus with diabetic chronic kidney disease; N18.6 End stage renal disease; D63.1 Anemia in chronic kidney disease; E03.9 Hypothyroidism, unspecified; E78.5 Hyperlipidemia, unspecified; I25.10 Atherosclerotic heart disease of native coronary artery without angina pectoris; M06.9 Rheumatoid arthritis, unspecified; Z86.73 Personal history of transient ischemic attack (TIA), and cerebral infarction without residual deficits; Z99.2 Dependence on renal dialysis; Z79.899 Other long term (current) drug therapy
CPT/HCPCS: 96365; 96366 ×3; 96375; 96368; 99285; 82550; 84484; 80053; 83690; 85025 ×3; 82948 ×7; 81001; 36415 ×3; 71045; 74176; 96376 ×2; 96361 ×2; 80048 ×2; 86706; 87340; 86704; 97161; 97116; G0378 ×50; J1956; J2270; J2405 ×3; J2765; J3490 ×5; 90935

== ENCOUNTER → 2025-03-19 | Outpatient (CLI) | payer MEDICARE ==
[~2025-03-19] MED LIST changes: -ATOR40TA69 PO; -CILO50TA2 PO; -CLOP-31 PO; -CYAN10007 IJ; +CYAN500L PO; -FERS325 PO; +FOLI0.8T22 PO; -GLIP5TAB15 PO; +LEVO250T75 PO; -LEVO75CA5 PO; +LEVO75CA6 PO; -PRED2.5T PO; -SOLI10TA7 PO
--- NOTE | 2025-03-20 06:49 | HMCIMG ---
EXAMINATION: ULTRASOUND OF THE ABDOMEN (LIMITED) WITH COLOR DOPPLER. CLINICAL HISTORY: Abnormal levels of other serum enzymes. COMPARISON: CT abdomen and pelvis without contrast dated 03/27/2024. TECHNIQUE: Real-time grayscale ultrasound images of the abdomen. In addition, color Doppler is medically necessary to perform in order to evaluate vascularity and blood flow. FINDINGS: Liver: Normal in caliber, the right hepatic lobe measures 13.7 cm in the craniocaudal dimension. There is increased echogenicity of the hepatic parenchyma. There is no focal hepatic abnormality or intrahepatic biliary ductal dilatation. There is normal spectral Doppler of the main portal vein. Gallbladder: Post cholecystectomy status. Common bile duct is normal in caliber, measuring 0.5 cm. Pancreas: Normal in caliber and echotexture. No calcification or dilated pancreatic duct. The right kidney is normal in caliber, the right kidney measures 8.1 x 3.1 x 4.1 cm in craniocaudal, AP, and transverse dimensions respectively. There is normal renal cortical thickness, and cortical echogenicity. There is no renal calculus or hydronephrosis. IMPRESSION: Hepatic steatosis. Post cholecystectomy status. No significant interval changes. /[place]
== END | disposition home or self-care (01) ==
LOC: RAH 09:28
PROVIDERS: ATTEND Family Medicine
DX: K76.0 Fatty (change of) liver, not elsewhere classified (principal); R74.8 Abnormal levels of other serum enzymes; Z90.49 Acquired absence of other specified parts of digestive tract
CPT/HCPCS: 76705